=== PATIENT | male | born 1975 | race Two or more races ===

== ENCOUNTER → 2019-05-04 | Outpatient (CLI) | payer OTHER ==
[~2019-05-04] MED LIST: DOXY25TA16 PO; ESOM20CA PO
--- NOTE | 2019-05-05 00:34 | PAIN ---
DATE OF SERVICE: 05/04/2019 INITIAL CONSULTATION FOR PAIN CLINIC CHIEF COMPLAINT: Low back and right lower extremity pain. HISTORY OF PRESENT ILLNESS: This is a 43-year-old male who presents with history of pain since about 2015 in the low back and right leg, worse since 12/2018. He was playing golf and got some pain in the low back and right leg as well as the mid upper back. The patient reports it made it much worse. He did have some pain in the upper back prior to that. The patient reports now the pain is radiating to posterior gluteus, posterolateral thigh, lateral anterior thigh, anterior medial thigh, posterior calf and anterior calf as well. The patient reports it is constant, sharp, stabbing, becoming more noticeable with activity, walking, standing, change in positions, wakes him from sleep at least once or twice a night, does not affect his bowel or bladder control or his ability to walk significantly. He has had some physical therapies in the past, also chiropractic treatment, is doing exercise continuously. He has tried Motrin, which is not working to decrease the pain. The patient rates the disability rating from 0-10, 10 being the worst, is a 3 with family home responsibilities and self-care, 6 with recreation and occupation, 4 with social activity, 2 with sexual behavior, and 1 with life support activities. The patient did have MRI scan of the lumbar spine showing multilevel degeneration with mild spinal canal narrowing at L2-L3, disk pathology at L2-L3 appears to contact and displaced the transiting right L3 nerve root in the right lateral recess. Also, L5-S1 showing degenerative loss of T2 signal in the disk as well as probably right paracentral annular tear, mild bilateral neural foraminal narrowing as well. The patient reports no loss of motor function, but significant fatigability with walking, standing, changing positions, getting up from a seated position is noticeable in the right leg as well, but no overt motor loss or weakness. PAST MEDICAL HISTORY: Significant for hearing loss, arthritis, gastroesophageal reflux. PREVIOUS SURGERY: Include ACL repair in the left knee. CURRENT MEDICATIONS: Include [id number] Motrin. ALLERGIES: The patient has no known drug allergies. FAMILY HISTORY: Significant for no major medical problems or conditions that he is aware of. SOCIAL HISTORY: The patient drinks alcohol about once or twice a week to a month, does not smoke. He does not use illegal, illicit or recreational drugs. 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 REVIEW OF SYSTEMS: The patient's review of systems is positive for those items mentioned in history of present illness. All systems reviewed and otherwise negative. It is complete, full and well documented on the patient's chart. PHYSICAL EXAMINATION: VITAL SIGNS: The patient's blood pressure is 132/86, pulse 64, respirations are 16, temperature 97.9 degrees Fahrenheit, height is 5 feet 7 inches, weight is 181 pounds. GENERAL: The patient is awake, alert, oriented, appropriate, very pleasant demeanor. HEENT: Shows normocephalic, atraumatic. Extraocular movements are intact and symmetrical. Oral cavity shows mucous membranes moist and pink. Dentition is intact. NECK: Shows anterior throat supple without palpable lymphadenopathy noted. Swallow reflex symmetrical. CHEST: Shows normal on inspection. Breath sounds clear to auscultation bilaterally. HEART: Shows S1, S2 clear. No murmurs auscultated. ABDOMEN: Soft, nontender, nondistended. No palpable organomegaly is noted. No rebound or guarding demonstrated. BACK: Shows spine grossly in the midline, normal appearing thoracic kyphosis, cervical lordotic curvature and lumbar lordotic curvature. In the thoracic distribution, there is area of very firm rope-like musculature just medial to the right medial aspect and border of the scapula in the paraspinous musculature, which is very firm, very tender consistent with trigger point areas of musculature. Left side is nontender. The patient shows good rotational motion of the thoracic spine, both laterally as well as extension and flexion without significant pain or difficulty. The patient's lumbar paraspinous muscle shows symmetrical on inspection. On palpation, some moderate tenderness diffusely bilaterally but only diffusely without significant radiation with good rotational motion both laterally greater than 10 degrees right and left as well as extension greater than 10 degrees, forward flexion 45 degrees without significant pain reported. No tenderness over the spinous processes, sacrum or sacroiliac regions with palpation. EXTREMITIES: The patient's lower extremities show deep tendon reflexes 2+ in the patellar and 1+ tendo calcaneus tendons are equal. Motor exam is strong with 5/5 dorsiflexion, extension, quadriceps and hamstring flexion and symmetrical. Peripheral pulses are 1+ posterior tibia. No peripheral edema bilaterally. Lower extremities are warm and dry to touch, equal in color and appearance. Straight leg raise noted to be negative for reproduction of radicular symptoms bilaterally. Gaenslen's and Fan's maneuvers are negative bilaterally as well. The patient is able to stand, stand on his toes without difficulty or loss of balance, walks with normal appearing gait, does not appear to favor the right or left lower extremity significantly and he does not use any assistive device to ambulate. The patient's skin shows warm and dry, good turgor. No edema. No sores, rashes or bruising throughout. IMPRESSION: 1. This is a 43-year-old male with approximate 4-year history of low back pain, right lower extremity pain, worse over the past 4 months or so. 2. MRI scan of lumbar spine as noted. 3. Arthritis. PLAN: Options were discussed with the patient including conservative medical managements, continued physical therapies and interventional techniques. He would like to pursue interventional techniques. We discussed a lumbar epidural steroid injection using description as well as anatomical models to describe the procedure. The patient will wait for preauthorization with his insurance provider and would like to obtain this and will have him return for lumbar epidural steroid injection at that time. JARED JOYNER MD DR: TERELL/carly JOB#: [id number] / [id number]
== END | disposition home or self-care (01) ==
LOC: PNCL 13:51
PROVIDERS: ATTEND Anesthesiology
DX: M54.5 Low back pain (principal); M79.604 Pain in right leg; M19.90 Unspecified osteoarthritis, unspecified site; K21.9 Gastro-esophageal reflux disease without esophagitis
CPT/HCPCS: G0463

== ENCOUNTER → 2019-05-12 | Outpatient (CLI) | payer OTHER ==
[~2019-05-12] MED LIST changes: +IOHEXOL 180 MG/ML 10 ML VIAL. ONE; +methylPREDNISolone ACETATE 40 MG/ML VIAL. ONE; +methylPREDNISolone ACETATE 80 MG/ML VIAL. ONE
--- NOTE | 2019-05-12 19:55 | PAIN ---
DATE OF SERVICE: 05/12/2019 PROGRESS NOTE FOR PAIN CLINIC DIAGNOSIS: Lumbar radiculopathy with lumbar degenerative disk disease. HISTORY OF PRESENT ILLNESS: The patient is a 43-year-old male who returns for followup status post initial evaluation and preauthorization for lumbar epidural steroid injection. The patient returns today with the authorization that he would like to proceed, still pain in the low back and into the right lower extremity as it was previously. No new motor or sensory deficits, no new bowel or bladder incontinence or any other complaints. The patient reports still painful with walking, standing, changing positions, better with sitting or lying down, does not awaken him from sleep at night. The patient reports the pain is a 7 on a scale of 10 at its worst over the past week, 6 on average and 4 at its least and is a 6 today. The patient describes aching and sharp, tight, stabbing in the low back as well. PHYSICAL EXAMINATION: VITAL SIGNS: The patient's blood pressure is 121/83, pulse is 81, respirations 18, temperature 98.0 degrees Fahrenheit, height is 5 feet 7 inches, weight is 179 pounds. GENERAL: The patient is awake, alert, oriented, appropriate, very pleasant demeanor. HEENT: Shows normocephalic, atraumatic. Extraocular movements are intact and symmetrical. Oral cavity: Mucous membranes moist and pink. Dentition is intact. NECK: Shows anterior throat supple without palpable lymphadenopathy noted. Swallow reflex symmetrical. CHEST: Shows normal on inspection. Breath sounds are clear bilaterally. HEART: Shows S1, S2 clear. No murmurs auscultated. ABDOMEN: Soft, nontender, nondistended. BACK: Shows spine grossly in the midline. Normal appearing thoracic kyphosis and lumbar lordotic curvature. Lumbar paraspinous muscle shows symmetrical on inspection and palpation shows some moderate tenderness diffusely bilaterally, but only diffusely without significant radiation. Deep tendon reflexes at 2+ in the patellar, 1+ tendo-calcaneus tendons are equal. Motor exam is strong with 5/5 dorsiflexion, extension, quadriceps and hamstring flexion. Peripheral pulses are 1+ posterior tibia. No peripheral edema bilaterally. Options were discussed with the patient medication regimen updated. Current review of systems updated today as well. We will proceed with a lumbar epidural steroid injection today with fluoroscopic guidance. Risks were again discussed including, but not limited to bleeding, infection, possibility of epidural hematoma, subsequent neurological compromise, dural puncture, headaches, spinal cord and/or nerve damage, side effects of steroid medication and poor results regarding pain control. The patient understands and wished to proceed. The patient will return to clinic in approximately 2 weeks for followup. He was counseled on return appointment, activity level and side effects to be aware of. DIAGNOSIS: Lumbar radiculopathy with lumbar degenerative disk disease. PROCEDURE: Lumbar epidural steroid injection, translaminar approach at L3-L4 level using C-arm fluoroscopic guidance under sterile prep and drape using local anesthetic. MEDICATION INJECTED: A total of 120 mg Depo-Medrol plus 10 mL of preservative-free normal saline and 2 mL of contrast. CONDITION AT DISCHARGE: Stable. The patient tolerated the procedure well, had no complications. JARED JOYNER MD DR: TERELL/carly JOB#: [id number] / [id number]
== END ==
LOC: PNCL 13:52
PROVIDERS: ATTEND Anesthesiology
DX: M51.16 Intervertebral disc disorders with radiculopathy, lumbar region (principal)
CPT/HCPCS: 62323; J1030; J1040; Q9965